=== PATIENT | female | born 1990 | race Hispanic/Latino ===

== ENCOUNTER 2016-12-05 15:34 | Emergency (ER) | payer MEDICAID, OTHER ==
[2016-12-05 15:41] VITALS: O2SAT 100
[2016-12-05] MEDS ORDERED: Sodium Chloride 0.9% 1,000 ML IV STA (15:56)
[2016-12-05] MEDS ORDERED: Clindamycin 300 MG in Sodium Chloride 0.9% 50 ML IVPB STA (15:56)
[2016-12-05] MEDS ORDERED: Clindamycin 600 MG in Sodium Chloride 0.9% 100 ML IVPB STA (15:58)
--- NOTE | 2016-12-05 16:06 | ED PDOC ---
HPI: Dental Pain/Injury Time Seen by Provider: 12/05/16 15:43 Chief Complaint (Nursing): Abnormal Skin Integrity Chief Complaint (Provider): RIGHT chin/neck swelling History Per: Patient History/Exam Limitations: no limitations Onset/Duration Of Symptoms: Days (7), Gradual, Persistent Current Symptoms Are (Timing): Still Present Severity: Severe Additional Complaint(s): RIGHT chin/upper neck swelling for 7 days, started day after multiple tooth extractions RIGHT mandible. Seen by dentist today who scheduled urgent appointment with oral surgeon tomorrow at 9am. But also recommended pt go to ER because of dehydration and severe dysphagia. +pain with swallowing +subj fever/chills No difficulty with breathing Was on amoxicillin and rx'd clindmycin today, but has not yet started. Past Medical History Reviewed: Historical Data, Nursing Documentation, Vital Signs Vital Signs: Last Vital Signs Temp 98.7 F 12/05/16 15:39 Pulse 96 H 12/05/16 15:39 Resp 16 12/05/16 15:39 BP 139/90 12/05/16 15:39 Pulse Ox 100 12/05/16 15:39 - Medical History PMH: GERD, HTN Denies: Chronic Kidney Disease - Surgical History Surgical History: Cholecystectomy, - Family History Family History: States: Hypertension - Social History Current smoker - smoking cessation education provided: No - Allergies Allergies/Adverse Reactions: Allergies Allergy/AdvReac Type Severity Reaction Status Date / Time No Known Allergies Allergy Verified 03/25/14 22:11 Review of Systems ROS Statement: Except As Marked, All Systems Reviewed And Found Negative (and as per HPI) Constitutional: Positive for: Fever, Chills ENT: Positive for: Mouth Pain, Throat Pain, Throat Swelling. Negative for: Nose Discharge Respiratory: Negative for: Cough Gastrointestinal: Negative for: Nausea, Vomiting, Diarrhea Skin: Negative for: Rash, Lesions Physical Exam - Reviewed Nursing Documentation Reviewed: Yes Vital Signs Reviewed: Yes - Physical Exam Appears: Positive for: Non-toxic, Uncomfortable, In Acute Distress (moderate painful) Head Exam: Positive for: ATRAUMATIC, NORMOCEPHALIC Skin: Positive for: Warm, Dry Eye Exam: Positive for: EOMI, PERRL ENT: Positive for: Pharynx Is (clear), Other (tacky mucus membranes, stitches in place at side of extraction of RIGHT lower 1st and 2nd bicuspid, and 1st molar with slight gingical erythema). Negative for: Pharyngeal Erythema, Tonsillar Exudate, Tonsillar Swelling Neck: Positive for: Supple, Trachea Midline (RIGHT submandibular tenderness and palpable mass, no redness, questionable fluctuance) Cardiovascular/Chest: Positive for: Regular Rate, Rhythm, Chest Non Tender. Negative for: Murmur Respiratory: Positive for: Normal Breath Sounds. Negative for: Wheezing, Respiratory Distress Gastrointestinal/Abdominal: Positive for: Soft. Negative for: Distended Back: Positive for: Normal Inspection. Negative for: Decreased ROM Extremity: Positive for: Normal ROM. Negative for: Deformity Lymphatic: Positive for: Other (RIGHT submandibular swelling may be lymphadenopathy or abscess) Neurologic/Psych: Positive for: Alert. Negative for: Motor/Sensory Deficits - Laboratory Results Result Diagrams: 12/05/16 16:14 12/05/16 16:14 Interpretation Of Abn Labs: Leukocytosis. Urine ketones. - ECG O2 Sat by Pulse Oximetry: 100 - Progress ED Course And Treament: IV antibiotics and IV pain meds and IVF ordered. Accession No. : [id number] Patient Name / ID : DARBY SUAREZ / [id number] Exam Date : 12/05/2016 16:53:27 ( Approved ) Study Comment : Sex / Age : F / 26Y Creator : ROSALIE JOY MD Dictator : ROSALIE JOY MD Recruitment Consultant : Executive Meeting Manager : ROSALIE JOY MD Approver2 : Report Date : 12/05/2016 17:50:03 My Comment : PROCEDURE: CT NECK WITH CONTRAST HISTORY: Right submandibular swelling possible abscess COMPARISON: None TECHNIQUE: CT of the neck with intravenous contrast. Coronal and sagittal reformats generated. Intravenous contrast dose: 80 mL Omnipaque 300 Radiation dose: DLP 409.62 mGy-cm This CT exam was performed using one or more of the following dose reduction techniques: Automated exposure control, adjustment of the mA and/or kV according to patient size, and/or use of iterative reconstruction technique. FINDINGS: NASOPHARYNX: There is mild adenoidal hypertrophy, otherwise within normal limits. SUPRAHYOID NECK: There is mild enlargement of the palatine tonsils. No peritonsillar abscess. There is a 1.8 x 0.7 cm low-attenuation area in the right anterior sublingual space. There is mild asymmetric enlargement of the right sublingual gland with indistinct margins. There is a 3.6 x 1.2 x 3.8 cm fluid collection in the floor of the mouth inferior to the sublingual glands. There is also mild enlargement and irregular appearance of the left sublingual gland. There is diffuse subcutaneous edema overlying the floor of the mouth with subcutaneous fat stranding. The oropharynx, parapharyngeal space and retropharyngeal space are normal. INFRAHYOID NECK: The larynx, hypopharynx, and supraglottic space are normal in appearance. Vocal cords intact. MASS: None. GLANDS: There is mild asymmetric enlargement of the right submandibular gland and minimal intraglandular ductal dilatation. Parotid and submandibular glands unremarkable. Normal size thyroid gland, without nodule. LYMPH NODES: There is mild enlargement of the submental, submandibular and jugular chain. CERVICAL SPINE: No fracture or focal lesion. Within normal limits for the patient's age. VASCULAR STRUCTURES: There is normal intravascular enhancement. OTHER FINDINGS: None. IMPRESSION: 1. Findings are most compatible with sublingual sialadenitis and 3.6 x 1.2 x 3.8 cm fluid collection in the floor of the mouth inferior to the sublingual glands, findings are more pronounced on the right. 2. Reactive submental, submandibular and upper jugular chain lymphadenopathy and reactive enlargement of the right submandibular gland with cellulitis in the soft tissues of the floor of the marked. PRECIOUS MICHEL at [facility]. To be transferred to ER for OMFS evaluation. PRECIOUS patient findings and plan of care. Pt feeling better with meds in ER. Stable for transfer. - Critical Care Total Time (In Min): 30 Documented Critical Care: Time excludes all time spent performint seperately billable procedures Disposition - Clinical Impression Clinical Impression: Fluid collection at surgical site, Status post tooth extraction Counseled Patient/Family Regarding: Studies Performed, Diagnosis - Disposition Disposition: Other Institution Disposition Time: 19:00 Condition: FAIR
[2016-12-05 16:19] LABS: VENOUS BLOOD GAS BASE EXCESS 2.8 mmol/L (0.0-2.0); VENOUS BLOOD GAS MODE ROOM AIR; VENOUS BLOOD GAS PCO2 52 mmHg (40-60); VENOUS BLOOD PH 7.36 (7.32-7.43)
[2016-12-05 16:25] LABS: BASO % 0.2 % (0.0-2.0); EOS # 0.1 K/uL (0.0-0.7); EOS % 0.3 % (0.0-4.0); HEMATOCRIT 36.9 % (34.0-47.0); LYMPH % 12.1 % (20.0-40.0); MEAN CELL VOLUME 77.8 fl (81.0-99.0); MEAN CORPUSCULAR HEMOGLOBIN 24.8 pg (27.0-31.0); MEAN CORPUSCULAR HGB CONC 31.8 g/dL (33.0-37.0); MEAN PLATELET VOLUME 7.9 fl (7.2-11.7); MONO % 6.1 % (0.0-10.0); NEUT # 13.4 K/uL (1.8-7.0); NEUT % 81.3 % (50.0-75.0); RED CELL DISTRIBUTION WIDTH 15.7 % (11.5-14.5); WHITE BLOOD COUNT 16.4 K/uL (4.8-10.8)
[2016-12-05] MEDS ORDERED: Sodium Chloride 0.9% 50 ML IV ONE (16:36)
[2016-12-05] MEDS ORDERED: Iohexol 300 100 ML IJ ONE (16:36)
[2016-12-05 16:37] LABS: ALB/GLOB RATIO 1.2 (1.0-2.1); ALKALINE PHOSPHATASE 58 U/L (38-126); ALT/SGPT 28 U/L (9-52); AST/SGOT 23 U/L (14-36); BILIRUBIN,TOTAL 0.9 mg/dl (0.2-1.3); BLOOD UREA NITROGEN 11 mg/dl (7-17); CALCIUM 9.4 mg/dL (8.4-10.2); CARBON DIOXIDE 24 mmol/L (22-30); CHLORIDE 107 mmol/L (98-107); GFR AFRICAN-AMERICAN > 60; GLUCOSE,RANDOM 95 mg/dL (65-105); SODIUM 144 mmol/l (132-148); TOTAL PROTEIN 8.4 G/DL (6.3-8.2)
[2016-12-05 16:53] LABS: PARTIAL THROMBOPLASTIN TIME 27.1 Seconds (25.6-37.1)
[2016-12-05 16:54] LABS: POTASSIUM 3.9 MMOL/L (3.6-5.0)
--- NOTE | 2016-12-05 17:52 | CT ---
PROCEDURE: CT NECK WITH CONTRAST HISTORY: Right submandibular swelling possible abscess COMPARISON: None TECHNIQUE: CT of the neck with intravenous contrast. Coronal and sagittal reformats generated. Intravenous contrast dose: 80 mL Omnipaque 300 Radiation dose: DLP 409.62 mGy-cm This CT exam was performed using one or more of the following dose reduction techniques: Automated exposure control, adjustment of the mA and/or kV according to patient size, and/or use of iterative reconstruction technique. FINDINGS: NASOPHARYNX: There is mild adenoidal hypertrophy, otherwise within normal limits. SUPRAHYOID NECK: There is mild enlargement of the palatine tonsils. No peritonsillar abscess. There is a 1.8 x 0.7 cm low-attenuation area in the right anterior sublingual space. There is mild asymmetric enlargement of the right sublingual gland with indistinct margins. There is a 3.6 x 1.2 x 3.8 cm fluid collection in the floor of the mouth inferior to the sublingual glands. There is also mild enlargement and irregular appearance of the left sublingual gland. There is diffuse subcutaneous edema overlying the floor of the mouth with subcutaneous fat stranding. The oropharynx, parapharyngeal space and retropharyngeal space are normal. INFRAHYOID NECK: The larynx, hypopharynx, and supraglottic space are normal in appearance. Vocal cords intact. MASS: None. GLANDS: There is mild asymmetric enlargement of the right submandibular gland and minimal intraglandular ductal dilatation. Parotid and submandibular glands unremarkable. Normal size thyroid gland, without nodule. LYMPH NODES: There is mild enlargement of the submental, submandibular and jugular chain. CERVICAL SPINE: No fracture or focal lesion. Within normal limits for the patient's age. VASCULAR STRUCTURES: There is normal intravascular enhancement. OTHER FINDINGS: None. IMPRESSION: 1. Findings are most compatible with sublingual sialadenitis and 3.6 x 1.2 x 3.8 cm fluid collection in the floor of the mouth inferior to the sublingual glands, findings are more pronounced on the right. 2. Reactive submental, submandibular and upper jugular chain lymphadenopathy and reactive enlargement of the right submandibular gland with cellulitis in the soft tissues of the floor of the marked.
[2016-12-05] MEDS ORDERED: Lactated Ringer's 1,000 ML IV STA (18:30)
[2016-12-05 20:29] VITALS: RESP 18
[2016-12-05 22:34] VITALS: BP 124/78; PULSE 93; TEMP 98.6
== END 2016-12-05 22:00 | disposition short-term general hospital (02) ==
LOC: H.ER 15:34
DX: L76.82 Other postprocedural complications of skin and subcutaneous tissue (principal); K11.20 Sialoadenitis, unspecified; R13.10 Dysphagia, unspecified; E86.0 Dehydration; K11.3 Abscess of salivary gland; K21.9 Gastro-esophageal reflux disease without esophagitis; I10 Essential (primary) hypertension
CPT/HCPCS: 70491; 80053; 81025; 82803; 85025; 85610; 85730; 86850; 86900; 87040; 96361; 96374; 96375; 99282; J1885; J2270; J7040; J7042; J7120; Q9967

== ENCOUNTER 2017-11-11 18:20 | Emergency (ER) | payer MEDICAID, OTHER ==
[2017-11-11 18:31] VITALS: RESP 18
--- NOTE | 2017-11-11 20:19 | ED PDOC ---
HPI: Chest Pain Time Seen by Provider: 11/11/17 19:31 Chief Complaint (Nursing): Chest Pain History Per: Patient Onset/Duration Of Symptoms: Mins Current Symptoms Are (Timing): Gone Now Additional Complaint(s): Hx of unknown cardiac abnormality (patient has no idea what heart problem she was diagnose with, takes 81mg of ASA as prescribed by Dr. Yeager) presenting with resolved chest pain. States that at around approximately 5PM she was sitting playing with her child and she felt L sided chest pain and finger numbness, also with brief episode of difficulty breathing and nausea. Upon arrival to ED her symptoms have completely resolved. Denies meds, denies drugs/ alcohol/smoking. No recent long plane ride, car ride, immobilization, surgery, leg swelling. Past Medical History Reviewed: Historical Data, Nursing Documentation, Vital Signs Vital Signs: Last Vital Signs Temp 98.0 F 11/11/17 22:07 Pulse 86 11/11/17 22:07 Resp 18 11/11/17 22:07 BP 122/81 11/11/17 22:07 Pulse Ox 100 11/11/17 22:07 - Medical History PMH: GERD, HTN Denies: Chronic Kidney Disease - Surgical History Surgical History: Cholecystectomy, - Family History Family History: States: Hypertension - Allergies Allergies/Adverse Reactions: Allergies Allergy/AdvReac Type Severity Reaction Status Date / Time No Known Allergies Allergy Verified 03/25/14 22:11 SHAWNA Risk Score for UA/NSTEMI - SHAWNA Risk Score Age > 64: NO 3 or more CAD Risk Factors: NO Known CAD (Stenosis greater than 50%): NO Aspirin use in past 7 days: NO Severe Angina: NO EKG ST changes greater than 0.5mm: NO Positive Cardiac Marker: NO SHAWNA Score: 0 Risk %: 5% Curb-65 Severity Score - CURB-65 Severity Score Confusion: No Bun >19mg/dl (>7mmol/L): No Respiratory Rate greater than/equal to 30: No Systolic BP <90 or Diastolic BP less than/equal 60mmHg: No Age >64: No Curb-65 Score: 0 Percentage 30-day mortality: 0.6% Wells Criteria for PE - Wells Criteria for Pulmonary Embolism Clinical Signs and Symptoms of DVT: No P.E is #1 Diagnosis, or Equally Likely: No Heart Rate >100: No Immobilization at least 3 days;Surgery previous 4 weeks: No Previous, objectively diagnosed PE or DVT: No Hemoptysis: No Malignancy w/treatment within 6 months, or palliative: No Total Score: 0 Review of Systems ROS Statement: Except As Marked, All Systems Reviewed And Found Negative Cardiovascular: Positive for: Chest Pain Respiratory: Positive for: Shortness of Breath Physical Exam - Reviewed Nursing Documentation Reviewed: Yes Vital Signs Reviewed: Yes - Physical Exam Appears: Positive for: Well, Non-toxic, No Acute Distress Head Exam: Positive for: ATRAUMATIC, NORMAL INSPECTION, NORMOCEPHALIC Skin: Positive for: Normal Color, Warm, DRY Eye Exam: Positive for: EOMI, Normal appearance, PERRL ENT: Positive for: Normal ENT Inspection Neck: Positive for: Normal, Painless ROM Cardiovascular/Chest: Positive for: Regular Rate, Rhythm Respiratory: Positive for: CNT, Normal Breath Sounds Gastrointestinal/Abdominal: Positive for: Normal Exam, Soft. Negative for: Tenderness Back: Positive for: Normal Inspection Extremity: Positive for: Normal ROM Neurologic/Psych: Positive for: Alert, internal consultant II-XII, Oriented - Laboratory Results Result Diagrams: 11/11/17 20:37 11/11/17 20:37 - ECG ECG: Positive for: Interpreted By Me ECG Rhythm: Positive for: Normal QRS, Normal ST Segment, Sinus Rhythm O2 Sat by Pulse Oximetry: 99 Pulse Ox Interpretation: Normal Medical Decision Making Medical Decision MakinPM Hx of unknown heart disease presenting with resolved chest pain -patient is very well appearing with normal exam, normal vitals, normal EKG -unlikely cardiac related, however given history will get trop and CXR 1030 -Workup negative -Advised patient to followup with Dr. Yeager -Well appearing, chest pain free, well appearing, stable vitals on discharge Disposition - Clinical Impression Clinical Impression: Atypical chest pain - Disposition Referrals: Wale Yeager MD [Primary Care Provider] - Disposition: Routine/Home Disposition Time: 22:30 Condition: GOOD Instructions: Chest Pain That Is Not Caused by the Heart (DC) Forms: [employer]Ed Online Doctor (Turkish)
[2017-11-11 20:58] LABS: HEMOGLOBIN 12.5 g/dL (12.0-16.0); MEAN CORPUSCULAR HEMOGLOBIN 25.1 pg (27.0-31.0); MEAN CORPUSCULAR HGB CONC 32.5 g/dL (33.0-37.0); RBC 4.99 Mil/uL (3.80-5.20); RED CELL DISTRIBUTION WIDTH 15.7 % (11.5-14.5); WHITE BLOOD COUNT 14.3 K/uL (4.8-10.8)
[2017-11-11 21:07] LABS: BLOOD UREA NITROGEN 10 mg/dl (7-17); CALCIUM 9.5 mg/dL (8.4-10.2); GFR AFRICAN-AMERICAN > 60; GFR NON-AFRICAN AMERICAN > 60
[2017-11-11 22:08] VITALS: BP 122/81; PULSE 86; TEMP 98
[2017-11-12 05:33] VITALS: O2SAT 99
--- NOTE | 2017-11-12 07:40 | CARD ---
APPROVED REPORT Date of service: 11/11/2017 <Conclusion> Normal sinus rhythm Normal ECG
== END 2017-11-11 22:08 | disposition home or self-care (01) ==
LOC: H.ER 18:20
DX: R07.89 Other chest pain (principal); I10 Essential (primary) hypertension; K21.9 Gastro-esophageal reflux disease without esophagitis